=== PATIENT | male | born 1965 | race Caucasian/White ===

== ENCOUNTER 2016-08-26 01:02 | Emergency (ER) | payer OTHER ==
[~2016-08-26] VITALS: Ht 167.6 cm; Wt 93.8 kg
[~2016-08-26 01:02] MED LIST: NOHOMEMEDS
[2016-08-26] MEDS ORDERED: CLEOCIN300 MG PO (01:18)
[2016-08-26] MEDS ORDERED: NORCO 5/3251 TABLET PO (01:19)
[2016-08-26 01:29] VITALS: BP 155/105
== END 2016-08-26 01:29 | disposition home or self-care (01) ==
LOC: EXP 01:02 → EME 01:02 → EXP 01:29
PROC: 3E0T3BZ Introduction of Anesthetic Agent into Peripheral Nerves and Plexi, Percutaneous Approach (ICD-10-PCS; principal; 2016-08-26)
DX: K08.89 Other specified disorders of teeth and supporting structures (principal); K03.81 Cracked tooth
CPT/HCPCS: 99281; 99284